=== PATIENT | female | born 1955 | race Hispanic/Latino ===

== ENCOUNTER 2020-11-23 13:00 | Outpatient (RCR) | payer OTHER | END 2020-11-25 | LOC: PT 13:00 | PROVIDERS: ATTEND Specialist | DX: M75.42 Impingement syndrome of left shoulder (principal); M62.81 Muscle weakness (generalized); M25.512 Pain in left shoulder; M25.612 Stiffness of left shoulder, not elsewhere classified ==

== ENCOUNTER 2020-12-19 13:00 | Outpatient (RCR) | payer OTHER | END 2020-12-23 | LOC: PT 13:00 | PROVIDERS: ATTEND Specialist | DX: M75.42 Impingement syndrome of left shoulder (principal); M62.81 Muscle weakness (generalized); M25.512 Pain in left shoulder; M25.612 Stiffness of left shoulder, not elsewhere classified ==

== ENCOUNTER 2021-01-18 12:59 | Outpatient (RCR) | payer OTHER | END 2021-01-23 | LOC: PT 12:59 | PROVIDERS: ATTEND Specialist | DX: M75.42 Impingement syndrome of left shoulder (principal); M62.81 Muscle weakness (generalized); M25.512 Pain in left shoulder; M25.612 Stiffness of left shoulder, not elsewhere classified ==

== ENCOUNTER → 2021-02-22 | Outpatient (RCR) | payer OTHER | LOC: PT 01-28 12:56 | PROVIDERS: ATTEND Specialist | DX: M75.42 Impingement syndrome of left shoulder (principal); M25.512 Pain in left shoulder; M25.612 Stiffness of left shoulder, not elsewhere classified; M62.81 Muscle weakness (generalized) ==

== ENCOUNTER 2021-03-08 12:57 | Outpatient (RCR) | payer OTHER | END 2021-03-25 | LOC: PT 12:57 | PROVIDERS: ATTEND Specialist | DX: M75.42 Impingement syndrome of left shoulder (principal) ==